=== PATIENT | female | born 2000 | race Two or more races ===

== ENCOUNTER 2025-01-31 19:54 | Outpatient (CLI) | payer OTHER ==
[2025-01-31 18:29] VITALS: BP 124/76
[2025-01-31] MEDS ORDERED: PRENATAL TABLE1 EAC4 PO (19:56)
[2025-01-31] MEDS ORDERED: CEFAZOLIN SODIUM 1,000 MG VIAL IV SCH (20:04)
[2025-01-31] MEDS ORDERED: RINGERS SOLUTION,LACTATED 1,000 ML IV SCH (20:15)
[2025-01-31 21:15] LABS: PH,URINE 6.5 (5.0-8.0); URINE APPEARANCE Clear; URINE BILIRRUBIN Negative (NEGATIVE); URINE BLOOD Moderate; URINE COLOR Yellow; URINE GLUCOSE Negative (NEGATIVE); URINE LEUKOCYTE Negative; URINE NITRATE Negative; URINE PROTEIN 30 (NEGATIVE); URINE UROBILINOGEN 0.2 E.U./dl
[2025-01-31 21:19] LABS: URINE BACTERIA 763.7 uL (0.0-1933); URINE EPITHELIAL CELLS 47.1 uL (0.0-38.8); URINE RBC 173.9 uL (0.0-20.8); URINE WBC 17.8 uL (0.0-23.2)
[2025-01-31 21:21] LABS: URINE KETONE 40 (NEGATIVE)
[2025-01-31 21:23] LABS: HEMATOCRIT 37.9 % (36.0-45.00); HEMOGLOBIN 12.4 g/dL (12.0-15.00); MEAN CELL VOLUME 90.1 fL (80.00-100.00); MEAN CORPUSCULAR HEMOGLOBIN 29.4 pg (27.00-32.0); MEAN CORPUSCULAR HGB CONC 32.7 g/dl (32.0-36.0); PLATELET COUNT 217 K/uL (150-450); RED BLOOD COUNT 4.21 M/uL (4.00-6.00); RED CELL DISTRIBUTION WIDTH 12.3 % (11.5-14.5)
[2025-01-31 21:50] LABS: BILIRUBIN TOTAL 0.36 mg/dL (0.3-1.2); CALCIUM 8.9 mg/dL (8.5-10.1); CREATININE SERUM 0.82 mg/dL (0.55-1.02); GFR 86.39; GLOBULINA 3.5 G/DL (2.4-3.5); POTASSIUM 4.54 mEq/L (3.5-5.1); TOTAL PROTEIN 6.5 gm/dL (6.4-8.2)
[2025-01-31] MEDS ORDERED: CYCLOBENZAPRINE HCL 5 MG TABLET PO PRN (23:00)
[2025-01-31] MEDS ORDERED: MORPHINE SULFATE 4 MG/ML VIAL IV ONE (23:00)
[2025-01-31 23:29] VITALS: BP 120/74
[2025-02-01 03:29] VITALS: BP 121/79
[2025-02-01 07:30] VITALS: BP 112/70
[2025-02-01 11:24] VITALS: BP 114/70
[2025-02-01 12:15] VITALS: BP 112/70
== END 2025-02-01 11:00 | disposition home or self-care (01) ==
LOC: OBS/DEL 19:54
PROVIDERS: ATTEND Obstetrics & Gynecology
DX: O26.893 Other specified pregnancy related conditions, third trimester (principal); Z3A.32 32 weeks gestation of pregnancy

== ENCOUNTER 2025-03-16 11:03 | Outpatient (CLI) | payer OTHER ==
[~2025-03-16 11:03] MED LIST: PRENATAL TABLE1 EAC4 PO
== END 2025-03-16 12:15 | disposition home or self-care (01) ==
LOC: NST 11:03
PROVIDERS: ATTEND Obstetrics & Gynecology Maternal & Fetal Medicine
DX: Z34.83 Encounter for supervision of other normal pregnancy, third trimester (principal)

== ENCOUNTER 2025-03-19 13:45 | Inpatient (IN) | payer OTHER ==
[~2025-03-19] VITALS: Ht 170.2 cm; Wt 72.6 kg
[2025-03-20] VITALS (7 sets, daily range): BP systolic 116–134; BP diastolic 73–83
[2025-03-20] MEDS ORDERED: CHLORHEXIDINE GLUCONATE 120 ML BOTTLE TOP ONE (00:01)
[2025-03-20] MEDS ORDERED: ERYTHROMYCIN BASE OPHT 1GM EACH TUBE OP ONE ×2 (00:01→03:00)
[2025-03-20] MEDS ORDERED: LIDOCAINE HCL 1% 10ML VIAL ONE (00:01)
[2025-03-20] MEDS ORDERED: OXYTOCIN 20 UNITS/1000ML RL PIGGYBAG IV ONE (00:01)
[2025-03-20] MEDS ORDERED: RINGERS SOLUTION,LACTATED 1,000 ML IV SCH (00:15)
[2025-03-20 00:35] LABS: HEMATOCRIT 40.9 % (36.0-45.00); HEMOGLOBIN 13.5 g/dL (12.0-15.00); MEAN CELL VOLUME 87.9 fL (80.00-100.00); MEAN CORPUSCULAR HGB CONC 32.9 g/dl (32.0-36.0); PLATELET COUNT 264 K/uL (150-450); RED BLOOD COUNT 4.66 M/uL (4.00-6.00); RED CELL DISTRIBUTION WIDTH 13.6 % (11.5-14.5)
[2025-03-20] MEDS ORDERED: METHYLERGONOVINE MALEATE 0.2 MG/ML AMPUL ONE (00:40)
[2025-03-20 00:51] LABS: INR < 0.93; PARTIAL THROMBOPLASTIN TIME 26.1 SECONDS (22.0-34.0); PROTHROMBIN TIME 10.2 SECONDS (9.0-11.5)
[2025-03-20 00:54] LABS: ALBUMIN 3.2 gm/dL (3.4-5.0); BILIRUBIN TOTAL 0.51 mg/dL (0.3-1.2); CALCIUM 9.3 mg/dL (8.5-10.1); CREATININE SERUM 0.78 mg/dL (0.55-1.02); GFR 90.73; GLOBULINA 3.9 G/DL (2.4-3.5); POTASSIUM 4.12 mEq/L (3.5-5.1); TOTAL PROTEIN 7.1 gm/dL (6.4-8.2)
[2025-03-20] MEDS ORDERED: OXYTOCIN 1,000 ML IV SCH (01:15)
[2025-03-20] MEDS ORDERED: CHLORHEXIDINE GLUCONATE 120 ML BOTTLE TOP SCH (01:15)
[2025-03-20] MEDS ORDERED: METHYLERGONOVINE MALEATE 0.2 MG/ML AMPUL IM ONE (03:00)
[2025-03-20] MEDS ORDERED: LIDOCAINE HCL 1% 10ML VIAL IJ ONE ×2 (03:00)
[2025-03-20] MEDS ORDERED: OxyCODONE HCL 5 MG TABLET (ROXICODONE) PO SCH (04:00)
[2025-03-20] MEDS ORDERED: KETOROLAC TROMETHAMINE 10 MG TABLET PO SCH (06:00)
[2025-03-21] VITALS: BP 106/68
[2025-03-21 09:26] VITALS: BP 116/80
[2025-03-21 18:15] VITALS: BP 116/78
[2025-03-21 20:35] VITALS: BP 111/73
[2025-03-22] VITALS: BP 115/74
[2025-03-22 10:54] VITALS: BP 116/75
[2025-03-22] MEDS ORDERED: FF) RHO(D) IMMUNE GLOBULIN (POM) IM NR (12:15)
== END 2025-03-22 14:57 | disposition home or self-care (01) | DRG 807 ==
LOC: OB/GYN 03-20 00:03 → LDR 03-20 00:03 → OB/GYN 03-20 02:45
PROVIDERS: ADMIT Obstetrics & Gynecology Maternal & Fetal Medicine; ATTEND Obstetrics & Gynecology Maternal & Fetal Medicine
PROC: 10E0XZZ Delivery of Products of Conception, External Approach (ICD-10-PCS; principal; 2025-03-20)
PROC: 0KQM0ZZ Repair Perineum Muscle, Open Approach (ICD-10-PCS; 2025-03-20)
PROC: 4A1HXCZ Monitoring of Products of Conception, Cardiac Rate, External Approach (ICD-10-PCS; 2025-03-20)
DX: O70.1 Second degree perineal laceration during delivery (principal); Z37.0 Single live birth; Z3A.39 39 weeks gestation of pregnancy